=== PATIENT | male | born 1930 | race Caucasian/White ===

== ENCOUNTER 2017-01-21 14:58 | Emergency (ER) | payer MEDICARE, BC ==
[~2017-01-21 14:58] MED LIST: ACETAMINOPHEN-H1 TA2 PO; AMOXICILLIN 8751 TAB PO; FINASTERIDE5 MG PO; FLOMAX 0.40.4 MG/CAP PO; KETOROLAC10 MG PO
[2017-01-21] MEDS ORDERED: AFRIN PUMPMIST15 ML NS (16:26)
[2017-01-21] MEDS ORDERED: GOOD NEIGHBOR P44 ML NS (16:26)
[2017-01-21 16:42] VITALS: BP 145/68
== END 2017-01-21 16:40 | disposition home or self-care (01) ==
LOC: ED 14:58
DX: R04.0 Epistaxis (principal)

== ENCOUNTER → 2017-04-23 | Outpatient (CLI) | payer MEDICARE, BC ==
[~2017-04-23] MED LIST changes: +AFRIN PUMPMIST15 ML NS; +GOOD NEIGHBOR P44 ML NS
== END ==
LOC: LAB 11:08
DX: R04.0 Epistaxis (principal)